=== PATIENT | male | born 2000 | race African-American/Black ===

== ENCOUNTER 2024-12-08 13:19 | Emergency (ER) | payer SELFPAY ==
[2024-12-08 13:36] VITALS: BP 131/83; PULSE 79; RESP 14; TEMP 37.3; O2SAT 98
--- NOTE | 2024-12-08 15:34 | PC.NURSE ---
Pt states I don't have any c/o. I'm wanting to get checked out
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
[2024-12-08 16:48] VITALS: BP 130/80; PULSE 80; RESP 16; TEMP 36.8; O2SAT 98
== END 2024-12-08 16:48 | disposition home or self-care (01) ==
PROVIDERS: Emergency Provider Emergency Medicine
DX: Z04.1 Encounter for examination and observation following transport accident (principal); V43.62XA Car passenger injured in collision with other type car in traffic accident, initial encounter
CPT/HCPCS: 99283